=== PATIENT | female | born 2000 | race Caucasian/White ===

== ENCOUNTER 2024-06-10 19:43 | Emergency (ER) | payer BC, SELFPAY ==
[2024-06-10] VITALS (8 sets, daily range): BP systolic 90–128; BP diastolic 53–72; BMI 21.8
--- NOTE | 2024-06-10 20:10 | ED.GENMED ---
History of Present Illness
General
Chief Complaint: Abdominal Symptoms
Source: patient
Time Seen by Provider: 06/10/24 20:02
History of Present Illness
History of Present Illness:
23-year-old female presents emergency room complaining of nausea, vomiting the past 24 hours. Patient also has not urinated at all for the past 24 hours at least. She feels very weak. No fever. No diarrhea. Patient has not traveled. She works
at [employer] and so is obviously around sick individuals. No known contact any GI bug
Past History
Past History
ED Past Medical History: None; Negative Asthma, HTN, Hypercholesterolemia or NIDDM
ED Past Surgical History: Other (Eye surgery)
Social History
Tobacco: Non-smoker
Alcohol: None
Personal: Single
Living: with family
Phy Exam
Physical Exam
Physical Exam:
General: Awake, Alert, Oriented X3. No acute distress.
Vitals: Tachycardic
Head: Atraumatic
Eyes: Pupils equal, EOMI
Throat: Airway intact, no exudates, dry mucosa
Neck: Trachea midline
Lungs: Clear and equal b/l
Heart: Regular rate, no murmurs
Abd: Soft, Nontender, No pulsatile mass
Neuro: Nonfocal
Skin: Warm, dry, no rash
Extremities: pulses equal b/l, no edema
Course
Orders/Labs/Results
Orders:
Orders
06/10/24 19:47
EKG [Electrocardiogram (*1)] Urgent
Reason for Study: Tachycardia
EKG- Treatment ONCE
06/10/24 20:08
Urinalysis Reflex To Culture Urgent
Date Specimen was Collected: 06/10/24
Time Specimen was Collected: 23:51
Lactated Ringers [Lr] 1,000 ml IV BOLUS
Test Result ONCE
06/10/24 20:38
Ondansetron Injectable [Zofran] 4 mg IV NOW STA
06/10/24 20:42
Complete Blood Count/With Diff Urgent
Comprehensive Metabolic Panel Urgent
HCG, Serum Qualitative Screen Urgent
Lipase Urgent
06/10/24 20:57
Ketorolac [Toradol] 15 mg .ROUTE .STK-MED ONE
06/10/24 20:59
Ketorolac [Toradol] 15 mg IV NOW STA
06/10/24 21:25
Lactated Ringers [Lr] 1,000 ml IV BOLUS
06/10/24 23:48
Ondansetron Injectable [Zofran] 4 mg .ROUTE .STK-MED ONE
06/10/24 23:50
Ondansetron Injectable [Zofran] 4 mg IV NOW STA
Abnormal Lab Results
06/10/24 06/11/24
20:42 00:12
WBC 17.9 H 10^3/uL
(4.8-10.8)
Abs Immat Gran (auto) 0.1 H 10^3/uL
(0-0.05)
Absolute Neuts (auto) 16.5 H 10^3/uL
(1.4-6.5)
Absolute Lymphs (auto) 0.4 L 10^3/uL
(1.2-3.4)
Absolute Monos (auto) 0.8 H 10^3/uL
(0.1-0.6)
Immature Gran % 0.6 H %
(0-0.5)
Neutrophils % 92.6 H %
(42.2-75.2)
Lymphocytes % 2.3 L %
(20.5-51.1)
BUN 19 H mg/dl
(7-17)
Creatinine 1.1 H mg/dL
(0.6-1.0)
Glucose 105 H mg/dl
(70-99)
Albumin 5.2 H g/dl
(3.5-5.0)
Urine Ketones 1+ A
(Negative)
Urine Bilirubin 1+ A
(Negative)
06/10/24 20:42
06/10/24 20:42
Vital Signs
Initial and Last Documented VS:
Initial Vital Signs
Temp Pulse Resp BP Pulse Ox
100 F 146 16 128/72 96
06/10/24 19:44 06/10/24 19:44 06/10/24 19:44 06/10/24 19:44 06/10/24 19:44
Last Documented Vital Signs
Temp Pulse Resp BP Pulse Ox
98.6 F 75 20 94/56 97
06/10/24 22:36 06/11/24 00:16 06/11/24 00:16 06/11/24 00:16 06/11/24 00:16
MDM/Problems Addressed
Differential Diagnosis Includes:
Gastritis, dehydration, electrolyte abnormality,
MDM/Problems Addressed:
Patient's labs show an elevated white blood cell count which is nonspecific. Chemistry show mild elevation of BUN and creatinine consistent with dehydration. Otherwise unremarkable. Patient received 2 L of lactated Ringer's and feels much better.
She is tolerating oral intake. She did urinate and has no signs of urinary tract infection. She is not . Patient stable for discharge
*Pulse Oximetry
Patient hypoxic: no
*Critical Care Note
Total Time (30-74mins, 75-104mins- exclusive of procedures): Not Applicable
ED Attending Note
-
Portions of this chart may have been created with voice recognition software.� Occasional wrong word or��sound alike� substitutions may have occurred due to the inherent limitations of voice recognition software.
Discharge Plan
Departure
Patient Disposition: Home (Routine Discharge)
Date of Disposition: 06/11/24
Time of Disposition: 00:21
Patient with high blood pressure during this ER visit?: No
Condition: Good
Discharge Problem:
Nausea and vomiting, Acute dehydration
Instructions: Dehydration, Adult (DC), Nausea and Vomiting, Adult (DC)
Prescriptions:
New
ondansetron 4 mg tablet,disintegrating
4 mg PO Q8H PRN (Reason: nausea and vomiting) Qty: 10 0RF
No Action
Prilosec
20 mg PO DAILY
Referrals:
Mary Taylor MD [Family Provider] -
Interventions
Interventions:
*Risk Screen - Suicide Last Done: 06/10/24 19:44
*General Assessment Last Done: 06/10/24 20:53
*Neglect/Abuse Screening Last Done: 06/10/24 20:53
ED- Fall Risk Assessment Last Done: 06/11/24 00:30
*ED COVID-19 Vaccine History Last Done: 06/10/24 20:47
*Nursing Disposition Last Done: 06/11/24 00:30
RM-Fnrxbd-Oscvgvogfu Assessment Last Done: 06/10/24 20:51
ED- Cardiac Assessment Last Done: 06/10/24 20:51
ED- Neurological Assessment Last Done: 06/10/24 20:51
ED- Pulmonary Assessment Last Done: 06/10/24 20:51
Discharge Date and Time
Discharge Date/Time: 06/11/24 00:35
Print Language: SINHALA
[2024-06-10] MEDS: ZOFRAN 4 MG IV ×2 (20:38→23:50)
[2024-06-10] MEDS: LR 1000 IV ×2 (20:38→21:26)
[2024-06-10 20:49] LABS: % Basophils 0.2 % (0-2); % Immature Granulocytes 0.6 % (0-0.5); % Lymphocytes 2.3 % (20.5-51.1); % Monocytes 4.3 % (1.7-9.3); % Neutrophils 92.6 % (42.2-75.2); Absolute Immature Granulocytes 0.1 10^3/uL (0-0.05); Absolute Lymphocytes 0.4 10^3/uL (1.2-3.4); Absolute Monocytes 0.8 10^3/uL (0.1-0.6); Absolute Neutrophils 16.5 10^3/uL (1.4-6.5); Hematocrit 46.3 % (37.0-47.0); Hemoglobin 15.9 g/dL (12.0-16.0); Mean Corp Hgb Conc. 34.3 g/dL (33.0-37.0); Mean Corpuscular Hgb 29.9 pg (27.0-31.0); Mean Corpuscular Volume 87.2 fL (81.0-99.0); Mean Platelet Volume 9.6 fL (7.4-10.4); Nucleated Red Blood Cells % 0 %; Platelet Count 316 10^3/uL (130-400); Red Blood Cell Count 5.31 10^6/uL (4.20-5.40); Red Cell Dist. Width 12.2 % (11.5-14.5); White Blood Cell Count 17.9 10^3/uL (4.8-10.8)
[2024-06-10] MEDS: TORADOL 15 MG IV (20:59)
[2024-06-10 21:04] LABS: HCG, Serum Qualitative Screen Negative
[2024-06-10 21:06] LABS: ALT (SGPT) 26 U/L (0-35); AST (SGOT) 28 U/L (14-36); Albumin 5.2 g/dl (3.5-5.0); Alkaline Phosphatase 68 U/L (38-126); Blood Urea Nitrogen 19 mg/dl (7-17); Calcium 10.1 mg/dl (8.4-10.2); Carbon Dioxide 22 mmol/L (22-30); Chloride 100 mmol/L (98-107); Estimated Creatinine Clearance 72 ml/min; Glucose 105 mg/dl (70-99); Lipase 43 U/L (23-300); Potassium 3.8 mmol/L (3.5-5.1); Sodium 139 mmol/L (135-145); Total Bilirubin 0.8 mg/dl (0.2-1.3); Total Protein 8.1 g/dl (6.3-8.2); eGFR > 60.00
[2024-06-11] VITALS: BP 101/59; BP 101/78; BP 120/76; PULSE 78; PULSE 82; PULSE 99
[2024-06-11 00:16] VITALS: BP 94/56
[2024-06-11 00:18] LABS: Urine Albumin Trace (Neg - Trace); Urine Bilirubin 1+ (Negative); Urine Character Clear (Clear); Urine Color Yellow; Urine Glucose Negative (Negative); Urine Ketone 1+ (Negative); Urine Leukocyte Negative (Negative); Urine Nitrite Negative (Negative); Urine Occult Blood Negative (Negative); Urine Urobilinogen Negative (Neg - 1+)
== END 2024-06-11 00:35 | disposition home or self-care (01) ==
LOC: EMR 19:43
PROVIDERS: EMERGENCY PHYSICIAN Emergency Medicine; FAMILY PHYSICIAN Family Medicine
DX: E86.0 Dehydration (principal); R11.2 Nausea with vomiting, unspecified
CPT/HCPCS: 99284; 96374; 96375; 96361 ×3; 96376; 80053; 81003; 83690; 84703; 85025; 93005